=== PATIENT | female | born 1980 | race Caucasian/White ===

== ENCOUNTER → 2023-05-06 | Day surgery (SDC) | payer OTHER ==
[~2023-05-06] VITALS: Ht 157.5 cm; Wt 70.4 kg
[~2023-05-06] MED LIST: ACET-861 PO; ACETAMINOPHEN 1000MG 100ML IV BAG As Ordered ONE; AMPICILLIN SOD/SULBACTAM SOD 3 GM in D5W MINI-BAG PLUS 100 ML IV ONE; BUPR8SUB SL; CHLORHEXIDINE GLUCONATE 0.12 % 15ML UDC (PERIDEX ORAL RINSE) As Ordered ONE; DEPO150I IM; LIDOCAINE 2% 100MG/5ML SDV (FOR ANES.) As Ordered ONE; LIDOCAINE 2% W/ EPINEPHRINE 1.7 ML DENTAL INJ As Ordered ONE; LR 1,000 ML IV SCH; MIDAZOLAM INJ 2MG/2ML VIAL As Ordered ONE; ONDANSETRON 4MG 2ML VIAL As Ordered ONE; ONDANSETRON 4MG 2ML VIAL IV PRN; ROCURONIUM BROMIDE 50MG/5ML VIAL As Ordered ONE; SUGAMMADEX SODIUM 500 MG/5 ML VIAL (BRIDION) As Ordered ONE; dexmedeTOMIDine (4MCG/ML)200MCG/50ML BTL (PRECEDEX) As Ordered ONE; fentaNYL 100 MCG/2 ML INJECTION As Ordered ONE; fentaNYL 100 MCG/2 ML INJECTION IV PRN; propofoL 200 MG/20 ML VIAL As Ordered ONE
[2023-05-06] MEDS: oxyCODONE 5MG TAB PO PRN ×2 (15:21→15:53)
[2023-05-06 16:00] VITALS: BP 137/81; TEMP 98.7; O2SAT 98
== END | disposition home or self-care (01) ==
LOC: M SDC 09:28
PROVIDERS: ATTEND Dentist
DX: K02.9 Dental caries, unspecified (principal); B18.2 Chronic viral hepatitis C; Z79.899 Other long term (current) drug therapy
CPT/HCPCS: 88300; C9290; D7210; D9223; J0131; J0295; J1100; J2250; J2405; J3010